=== PATIENT | male | born 1960 | race Caucasian/White ===

== ENCOUNTER → 2021-05-05 | Outpatient (CLI) | payer BC ==
[2021-05-05 08:23] LABS: RED BLOOD COUNT 4.91 M/UL (4.20-5.50); WHITE BLOOD COUNT 6.6 K/UL (4.5-11.0)
[2021-05-05 09:00] LABS: BUN/CREATININE RATIO 19 (0-10)
[2021-05-06 06:45] LABS: CREATININE, URINE 251.2 mg/dL (Not Estab.)
[2021-05-06 10:11] LABS: ANTISTREPTOLYSIN O AB 31.8 IU/mL (0.0-200.0); RHEUMATOID ARTHRITIS FACTOR <10.0 IU/mL (<14.0)
== END ==
LOC: LAB 07:15
PROVIDERS: Nurse Practitioner Family
DX: Z00.00 Encounter for general adult medical examination without abnormal findings (principal); Z12.5 Encounter for screening for malignant neoplasm of prostate; R31.9 Hematuria, unspecified; R10.9 Unspecified abdominal pain; T14.90XA Injury, unspecified, initial encounter; R07.81 Pleurodynia; R73.9 Hyperglycemia, unspecified; I10 Essential (primary) hypertension; E29.1 Testicular hypofunction; R53.83 Other fatigue; E53.8 Deficiency of other specified B group vitamins; E55.9 Vitamin D deficiency, unspecified; M25.50 Pain in unspecified joint; N20.0 Calculus of kidney
CPT/HCPCS: 71101; 74018; 80053; 80061; 82043; 82570; 82607; 83036; 84153; 84439; 84443; 84550; 85025; 85652; 86038; 86060; 86140; 86141; 86431; 87086